=== PATIENT | female | born 1930 | race Asian ===

== ENCOUNTER 2017-04-02 22:13 | Inpatient (IN) | payer MEDICARE, OTHER ==
[~2017-04-02] VITALS: Ht 162.6 cm; Wt 55.3 kg
[~2017-04-02 22:13] MED LIST: ACETAMINOPHEN-1 EAC1 ORAL; ASPIR 8181 MG ORAL; CORLANOR5 MG PO; FERROUS SULFAT325 MG ORAL; GABAPENTIN300 MG ORAL; LIPITOR80 MG ORAL; METOPROLOL TART50 MG ORAL; MIRTAZAPINE15 M3 ORAL; SPIRONOLACTONE25 MG ORAL; SULFAMETHOXAZO1 EAC2 ORAL; TRADJENTA5 MG PO; ZESTRIL2.5 MG ORAL
--- NOTE | 2017-04-02 22:15 | Emergency Room Report ---
History of Present Illness General Chief Complaint: Fever Source: Family Member, EMS Present Illness HPI Patient is a 87-year-old female brought in by EMS after increased fever. Patient gradual onset of symptoms. The patient was noted to have 102 temperature at home. She had prior history of urostomy as well as colostomy. She had prior history of mild dementia. The patient brought in by EMS.Has had prior history of AR Allergies: Coded Allergies: No Known Allergies (Unverified , 01/03/16) Patient History Last Menstrual Period: ukn Now: No Reviewed Nursing Documentation: PMH: Agreed, PSxH: Agreed Nursing Documentation-PMH Past Medical History: No History, Except For Review of Systems All Other Systems: limited - by mental status Physical Exam Vital Signs Date Time Temp Pulse Resp B/P Pulse Ox O2 Delivery O2 Flow Rate FiO2 04/02/17 22:05 99.5 75 16 123/69 99 Room Air General Appearance: alert, mild distress Eyes: bilateral eye PERRL Neck: limited range of motion Respiratory: lungs clear Cardiovascular #1: no edema, diastolic murmur Gastrointestinal: normal bowel sounds, non tender, other - colostomy, urostomy Genitourinary: no CVA tenderness, adnexa normal Neurologic: alert, motor weakness - bilateral lower extremity Skin: no rash, other - slight discoloration to right foot Medical Decision Making Diagnostic Impression: Primary Impression: Sepsis Additional Impression: UTI (urinary tract infection) ER Course Patient presented for fever. Differential diagnosis included wasn't limited to pneumonia, urinary tract infection, drug fever, allergic reaction, sepsis, cholecystitis, among others. Labs Test 04/02/17 22:30 04/02/17 22:36 White Blood Count 11.7 K/UL (4.8-10.8) Red Blood Count 3.18 M/UL (4.20-5.40) Hemoglobin 10.2 G/DL (12.0-16.0) Hematocrit 29.9 % (37.0-47.0) Mean Corpuscular Volume 94 FL (80-99) Mean Corpuscular Hemoglobin 32.0 PG (27.0-31.0) Mean Corpuscular Hemoglobin Concent 34.0 G/DL (32.0-36.0) Red Cell Distribution Width 14.5 % (11.6-14.8) Platelet Count 179 K/UL (150-450) Mean Platelet Volume 6.4 FL (6.5-10.1) Neutrophils (%) (Auto) 82.1 % (45.0-75.0) Lymphocytes (%) (Auto) 11.2 % (20.0-45.0) Monocytes (%) (Auto) 6.4 % (1.0-10.0) Eosinophils (%) (Auto) 0.2 % (0.0-3.0) Basophils (%) (Auto) 0.2 % (0.0-2.0) Sodium Level 138 mEQ/L (135-145) Potassium Level 4.4 mEQ/L (3.4-4.9) Chloride Level 103 mEQ/L (98-107) Carbon Dioxide Level 26 mEQ/L (20-30) Anion Gap 9 (5-15) Blood Urea Nitrogen 15 mg/dL (7-23) Creatinine 0.7 mg/dL (0.5-0.9) Estimat Glomerular Filtration Rate mL/min (>60) Glucose Level 120 mg/dL (74-106) Lactic Acid Level 1.20 mmol/L (0.66-2.22) Calcium Level 8.3 mg/dL (8.6-10.2) Total Bilirubin 0.6 mg/dL (0.0-1.2) Aspartate Amino Transf (AST/SGOT) 14 U/L (5-40) Alanine Aminotransferase (ALT/SGPT) 8 U/L (3-33) Alkaline Phosphatase 81 U/L (35-104) Total Creatine Kinase 19 U/L (26-140) Creatine Kinase MB < 1.5 ng/mL (< 3.8) Creatine Kinase MB Relative Index 7.8 Troponin I < 0.30 ng/mL (<=0.30) Pro-B-Type Natriuretic Peptide 2533 pg/mL (0-450) Total Protein 6.2 g/dL (6.6-8.7) Albumin 2.9 g/dL (3.5-5.2) Globulin 3.3 g/dL Albumin/Globulin Ratio 0.8 (1.0-2.7) Urine Color Pale yellow Urine Appearance Turbid Urine pH 6.5 (4.5-8.0) Urine Specific [place] 1.015 (1.005-1.035) Urine Protein 3+ (NEGATIVE) Urine Glucose (UA) Negative (NEGATIVE) Urine Ketones Negative (NEGATIVE) Urine Occult Blood 5+ (NEGATIVE) Urine Nitrite Positive (NEGATIVE) Urine Bilirubin Negative (NEGATIVE) Urine Urobilinogen Normal MG/DL (0.0-1.0) Urine Leukocyte Esterase 3+ (NEGATIVE) Urine RBC 2-4 /HPF (0 - 2) Urine WBC Tntc /HPF (0 - 2) Urine Squamous Epithelial Cells None /LPF (NONE/OCC) Urine Bacteria Many /HPF (NONE) EKG Diagnostic Results Rate: normal Rhythm: NSR ST Segments: no acute changes Chest X-Ray Diagnostic Results Chest X-Ray Diagnostic Results : Chest X-Ray Ordered: Yes # of Views/Limited/Complete: 1 View Indication: Shortness of Breath EP Interpretation: Yes Interpretation: no consolidation, no pneumothorax, other - left effusion Interpreting ER Provider: Electronically signed by Dr. Merrick Gray M.D. Last Vital Signs Date Time Temp Pulse Resp B/P Pulse Ox O2 Delivery O2 Flow Rate FiO2 04/02/17 22:05 99.5 75 16 123/69 99 Room Air Status: unchanged Disposition: ADMITTED INPATIENT Condition: Serious Merrick Gray Apr 02, 2017 22:15
[2017-04-02 22:36] LABS: BASOPHILS % (AUTO) 0.2 % (0.0-2.0); EOSINOPHILS % (AUTO) 0.2 % (0.0-3.0); LYMPHOCYTES % (AUTO) 11.2 % (20.0-45.0); MEAN CORPUSCULAR VOLUME 94 FL (80-99); MEAN PLATELET VOLUME 6.4 FL (6.5-10.1); MONOCYTES % (AUTO) 6.4 % (1.0-10.0); NEUTROPHILS % (AUTO) 82.1 % (45.0-75.0); PLATELET COUNT 179 K/UL (150-450); RED BLOOD COUNT 3.18 M/UL (4.20-5.40); RED CELL DISTRIBUTION WIDTH 14.5 % (11.6-14.8); WHITE BLOOD COUNT 11.7 K/UL (4.8-10.8)
[2017-04-02 22:44] LABS: APPEARANCE,URINE TURBID; KETONES,URINE NEGATIVE (NEGATIVE); LEUKOCYTE ESTERASE ,URINE 3+ (NEGATIVE); NITRITE,URINE POSITIVE (NEGATIVE); PH,URINE 6.5 (4.5-8.0); PROTEIN,URINE 3+ (NEGATIVE); UROBILINOGEN,URINE NORMAL MG/DL (0.0-1.0)
[2017-04-02 22:49] LABS: TROPONIN I < 0.30 ng/mL (<=0.30)
[2017-04-02 22:50] LABS: ALANINE AMINOTRANSFERASE 8 U/L (3-33); ALBUMIN/GLOBULIN RATIO 0.8 (1.0-2.7); ANION GAP 9 (5-15); ASPARTATE AMINO TRANSFERASE 14 U/L (5-40); CALCIUM 8.3 mg/dL (8.6-10.2); CARBON DIOXIDE 26 mEQ/L (20-30); CHLORIDE 103 mEQ/L (98-107); CREATININE 0.7 mg/dL (0.5-0.9); HEMOLYSIS 20; POTASSIUM 4.4 mEQ/L (3.4-4.9); SODIUM 138 mEQ/L (135-145); TOTAL PROTEIN 6.2 g/dL (6.6-8.7)
[2017-04-02] MEDS ORDERED: Ampicillin/Sulbactam Sod 3 GM in NS 110 ML IVPB ONE (23:00)
[2017-04-02 23:01] LABS: CKMB < 1.5 ng/mL (< 3.8)
[2017-04-02] MEDS ORDERED: Unasyn 3gm Inj ONE (23:05)
[2017-04-02 23:17] LABS: BACTERIA,URINE MANY /HPF; WBC,URINE TNTC /HPF (0 - 2)
[2017-04-02] MEDS ORDERED: ASPIRIN EC81 MG ORAL (23:26)
[2017-04-02] MEDS ORDERED: AMLODIPINE BESYL5 MG ORAL (23:26)
[2017-04-02] MEDS ORDERED: DOCUSATE SODIU100 MG ORAL (23:26)
[2017-04-02] MEDS ORDERED: CEPHALEXIN500 M1 ORAL (23:26)
[2017-04-02 23:29] VITALS: BP 121/56
[2017-04-03] VITALS (7 sets, daily range): BP systolic 114–150; BP diastolic 44–81
[2017-04-03] MEDS ORDERED: LISINOPRIL5 MG ORAL (02:37)
[2017-04-03] MEDS ORDERED: DOCUSATE SODIU100 MG ORAL (02:37)
[2017-04-03] MEDS ORDERED: Morphine Sulfate 2mg/ml Inj IVP PRN (07:30)
[2017-04-03] MEDS ORDERED: DuoNeb 0.5-3(2.5)mg/3ml neb HHN PRN (07:30)
[2017-04-03] MEDS ORDERED: Miralax 17gm pkt ORAL PRN (07:30)
[2017-04-03] MEDS ORDERED: Nitroglycerin Subl 0.4mg tab (Bottle Of 25) SL PRN (07:30)
--- NOTE | 2017-04-03 08:25 | Diagnostic Imaging Report ---
Indication: Abdominal pain Technique: Continuous helical scanning was performed without any contrast material from the diaphragms through the pelvis per specific request of the ordering physician. Axial, sagittal, and coronal images were generated. Dose: Total Dose Length Product - DLP [address] Dose Index - CTDIvol(s) 16.3 mGy. Comparison: 05/05/2016 Findings: Calcification is noted in the aorta. There is calcification of the mitral valve. Pleural effusion is present, larger than on the previous study. There is a tiny right pleural effusion. Some atelectasis is noted in both lung bases. Liver is unremarkable. The gallbladder is normal. The spleen is normal. Ostomies are present on both sides of the abdomen. The ostomy on the right is new since previous study appears to represent a urinary diversion. The pancreas is not enlarged and is otherwise unremarkable. Some nodularity is noted in the adrenal glands but this is unchanged. There is a lateral hydronephrosis which is new since previous study. The retroperitoneum is free of adenopathy. There is an inferior vena caval filter. There is no evidence of bowel dilatation. The bladder is incompletely filled. The bladder wall is slightly thickened. Severe degenerative changes noted in the left hip. There is a right hip screw and jossie. The bones are osteopenic. Degenerative changes are noted in the spine. A compression fracture of L1. 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 There is now bilateral hydronephrosis. Thickened bladder wall. IVC filter. Atherosclerotic change. Degenerative change of the spine. Compression fracture of L1, old. Left pleural effusion, increased from previous study. There are small right pleural effusion. Calcified mitral bowel. Appendix not visualized. There are degenerative change of the spine. Hardware the right hip. Degenerative change of the left hip. The above report is concordant with preliminary reading by [facility] . The CT scanner at [facility] is accredited by the [employer] and the scans are performed using protocols designed to limit radiation exposure to as low as reasonably achievable to attain images of sufficient resolution adequate for diagnostic evaluation.
[2017-04-03] MEDS: Atorvastatin 80mg tab ORAL SCH (09:00)
[2017-04-03] MEDS: Heparin 5000 units/ml inj SUBQ SCH ×2 (09:00→20:43)
[2017-04-03] MEDS: Aspirin EC 81mg tab ORAL SCH (09:00)
[2017-04-03] MEDS ORDERED: Cefepime HCl 2 GM in D5W 110 ML IV ONE (10:00)
[2017-04-03 10:55] LABS: TROPONIN I < 0.30 ng/mL (<=0.30)
[2017-04-03] MEDS: Vancomycin 1 GM in D5W 275 ML IVPB SCH (11:00)
--- NOTE | 2017-04-03 12:00 | History and Physical Report ---
DATE OF ADMISSION: 04/02/2017 TIME: 9 a.m. CONSULTANTS: 1. 2. Fartun Hawthorne M.D. 3. George Alvarado M.D. 4. Richard De La Fuente M.D. 5. Sarthak Johnson M.D. CHIEF COMPLAINT: Fever, weakness, and confusion. BRIEF HISTORY: The patient is an 86-year-old female from home, presents to [facility] last night with increased fever and weakness, slightly confused. The patient was diagnosed with UTI and sepsis and admitted to telemetry for further care. Slightly anxious, resting in bed, and slightly confused. No complaints otherwise. PAST MEDICAL HISTORY: Hypertension, CHF, and confusion. PAST SURGICAL HISTORY: Appendectomy. MEDICATIONS: Cefepime, vancomycin, Remeron, amlodipine, Ecotrin, Lipitor, Neurontin, , DuoNeb, Tylenol, morphine, MiraLax, Zofran, Restoril, and nitroglycerin. ALLERGIES: Denies. SOCIAL HISTORY: No smoke. No alcohol. No intravenous drug abuse. FAMILY HISTORY: Noncontributory. REVIEW OF SYSTEMS: No chest pain or shortness of breath. No nausea, vomiting, or diarrhea. PHYSICAL EXAMINATION: GENERAL: Slightly anxious, in bed, oriented x2, in no acute distress. VITAL SIGNS: Temperature is 98 degrees, pulse 69, respirations 20, and blood pressure 150/67. CARDIOVASCULAR: No murmurs. LUNGS: Distant and clear. ABDOMEN: Positive bowel sounds. Soft, nontender, and nondistended. EXTREMITIES: No cyanosis, clubbing, or edema. NEUROLOGIC: Cranial nerves II through XII are grossly intact. Deep tendon reflexes are 2+. Strength is 4/5. LABORATORY AND DIAGNOSTIC DATA: White count is 11.7, hemoglobin and hematocrit 10.2 and 29, and platelets 179,000. BMP shows glucose 120. Troponin less than 0.03. BNP is 2533. Albumin is 2.9. Urinalysis, 3+ leukocyte esterase. ASSESSMENT: 1. Fever. 2. Urinary tract infection. 3. Sepsis. 4. Confusion. 5. Congestive heart failure. 6. Hypertension. 7. Anemia. 8. History of ventricular tachycardia. PLAN: 1. Continue premedications. 2. Antibiotics per Infectious Disease. 3. OT, PT, and dietary evaluation. 4. CBC and BMP in the morning. 5. Resume home medications. 6. Dr. Au, Dr. Hawthorne, Dr. Alvarado, Dr. De La Fuente, to consult. 7. We will continue to follow this patient. Delfino Ponce D.O. DR: DEB JOB#: [id number] CC:
[2017-04-03 13:11] LABS: APPEARANCE,URINE CLOUDY; KETONES,URINE NEGATIVE (NEGATIVE); LEUKOCYTE ESTERASE ,URINE 3+ (NEGATIVE); NITRITE,URINE POSITIVE (NEGATIVE); PH,URINE 6 (4.5-8.0); PROTEIN,URINE 3+ (NEGATIVE); UROBILINOGEN,URINE NORMAL MG/DL (0.0-1.0)
[2017-04-03 13:12] LABS: BACTERIA,URINE MANY /HPF; SQUAMOUS EPITHELIAL CELL,UR MODERATE /LPF (NONE/OCC); WBC,URINE TNTC /HPF (0 - 2)
--- NOTE | 2017-04-03 13:20 | Consultation ---
History of Present Illness General Date patient seen: Apr 03, 2017 Chief Complaint: Fever Referring physician: Dr. Gregory Reason for Consultation: inpatient management Present Illness Allergies: Coded Allergies: No Known Allergies (Unverified , 01/03/16) Medication History Scheduled Amlodipine Besylate* (Amlodipine Besylate*), 5 MG ORAL DAILY, (Reported) Aspirin Ec* (Aspirin Ec*), 81 MG ORAL DAILY, (Reported) Atorvastatin (Lipitor), 80 MG ORAL DAILY, (Reported) Cephalexin* (Cephalexin*), 500 MG ORAL THREE TIMES A DAY, (Reported) Gabapentin* (Gabapentin*), 300 MG ORAL THREE TIMES A DAY, (Reported) Lisinopril (Lisinopril*), 5 MG ORAL DAILY, (Reported) Mirtazapine* (Mirtazapine*), 15 MG ORAL DAILY, (Reported) Scheduled PRN Docusate Sodium* (Docusate Sodium*), 100 MG ORAL TWICE A DAY PRN for Constipation, (Reported) Discontinued Medications Docusate Sodium* (Docusate Sodium*), 100 MG ORAL TWICE A DAY, (Reported) Discontinued Reason: Medication dose changed Ferrous Sulfate* (Ferrous Sulfate*), 325 MG ORAL DAILY, (Reported) Discontinued Reason: Pt stopped taking med Ivabradine HCl (Corlanor), 5 MG PO TWICE A DAY, (Reported) Discontinued Reason: Pt stopped taking med Ivabradine HCl (Corlanor), 5 MG PO BID, (Reported) Discontinued Reason: Pt stopped taking med Linagliptin (Tradjenta), 5 MG PO DAILY, (Reported) Discontinued Reason: Pt stopped taking med Lisinopril* (Zestril*), 2.5 MG ORAL DAILY, (Reported) Discontinued Reason: Medication dose changed Metoprolol Tartrate* (Metoprolol Tartrate*), 50 MG ORAL BID, (Reported) Discontinued Reason: Pt stopped taking med Spironolactone* (Aldactone*), 25 MG ORAL DAILY, (Reported) Discontinued Reason: Pt stopped taking med Sulfamethoxazole/Trimethoprim Ds Tablet* (Sulfamethoxazole-Tmp Ds Tablet*), 1 TAB ORAL DAILY, (Reported) Discontinued Reason: Pt stopped taking med Patient History Healthcare decision maker Resuscitation status Full Code Advanced Directive on File Past Medical/Surgical History Past Medical/Surgical History: (1) SBO/ileus (2) Colostomy care (3) Recto-vesical fistula Review of Systems All Other Systems: negative except mentioned in HPI Physical Exam General Appearance: cachetic Lines, tubes and drains: peripheral, central line HEENT: normocephalic, atraumatic Neck: non-tender, normal alignment Respiratory/Chest: chest wall non-tender, lungs clear Breasts: no masses Cardiovascular/Chest: normal peripheral pulses Abdomen: normal bowel sounds, non tender Genitourinary/Rectal: normal genital exam, normal rectal exam Extremities: normal range of motion, non-tender Skin Exam: normal pigmentation Last 24 Hour Vital Signs Date Time Temp Pulse Resp B/P Pulse Ox O2 Delivery O2 Flow Rate FiO2 04/03/17 11:29 98.3 72 19 148/71 94 Room Air 04/03/17 09:00 95 142/72 04/03/17 08:49 98.1 69 20 150/67 95 Room Air 04/03/17 04:00 60 04/03/17 04:00 98.1 62 18 120/60 97 Room Air 04/03/17 01:36 98.1 68 18 127/57 97 Room Air 04/03/17 01:18 68 20 113/48 96 Room Air 04/03/17 00:34 19 114/44 97 Room Air 04/02/17 23:29 98.3 70 25 121/56 96 Room Air 04/02/17 22:05 99.5 75 16 123/69 99 Room Air Intake and Output 04/02/17 04/03/17 19:00 07:00 Intake Total 110 ml Output Total 400 ml Balance -290 ml Intake Oral 0 ml IV Total 110 ml Output Urine Total 200 ml Stool Total 200 ml # Bowel Movements 2 Laboratory Tests Test 04/02/17 22:30 04/02/17 22:36 04/03/17 09:40 04/03/17 12:05 White Blood Count 11.7 K/UL (4.8-10.8) H Red Blood Count 3.18 M/UL (4.20-5.40) L Hemoglobin 10.2 G/DL (12.0-16.0) L Hematocrit 29.9 % (37.0-47.0) L Mean Corpuscular Volume 94 FL (80-99) Mean Corpuscular Hemoglobin 32.0 PG (27.0-31.0) H Mean Corpuscular Hemoglobin Concent 34.0 G/DL (32.0-36.0) Red Cell Distribution Width 14.5 % (11.6-14.8) Platelet Count 179 K/UL (150-450) Mean Platelet Volume 6.4 FL (6.5-10.1) L Neutrophils (%) (Auto) 82.1 % (45.0-75.0) H Lymphocytes (%) (Auto) 11.2 % (20.0-45.0) L Monocytes (%) (Auto) 6.4 % (1.0-10.0) Eosinophils (%) (Auto) 0.2 % (0.0-3.0) Basophils (%) (Auto) 0.2 % (0.0-2.0) Sodium Level 138 mEQ/L (135-145) Potassium Level 4.4 mEQ/L (3.4-4.9) Chloride Level 103 mEQ/L (98-107) Carbon Dioxide Level 26 mEQ/L (20-30) Anion Gap 9 (5-15) Blood Urea Nitrogen 15 mg/dL (7-23) Creatinine 0.7 mg/dL (0.5-0.9) Estimat Glomerular Filtration Rate mL/min (>60) Glucose Level 120 mg/dL (74-106) H Lactic Acid Level 1.20 mmol/L (0.66-2.22) Calcium Level 8.3 mg/dL (8.6-10.2) L Total Bilirubin 0.6 mg/dL (0.0-1.2) Aspartate Amino Transf (AST/SGOT) 14 U/L (5-40) Alanine Aminotransferase (ALT/SGPT) 8 U/L (3-33) Alkaline Phosphatase 81 U/L (35-104) Total Creatine Kinase 19 U/L (26-140) L Creatine Kinase MB < 1.5 ng/mL (< 3.8) Creatine Kinase MB Relative Index 7.8 Troponin I < 0.30 ng/mL (<=0.30) < 0.30 ng/mL (<=0.30) Pro-B-Type Natriuretic Peptide 2533 pg/mL (0-450) H Total Protein 6.2 g/dL (6.6-8.7) L Albumin 2.9 g/dL (3.5-5.2) L Globulin 3.3 g/dL Albumin/Globulin Ratio 0.8 (1.0-2.7) L Urine Color Pale yellow Pale yellow Urine Appearance Turbid Cloudy Urine pH 6.5 (4.5-8.0) 6 (4.5-8.0) Urine Specific [place] 1.015 (1.005-1.035) 1.010 (1.005-1.035) Urine Protein 3+ (NEGATIVE) H 3+ (NEGATIVE) H Urine Glucose (UA) Negative (NEGATIVE) Negative (NEGATIVE) Urine Ketones Negative (NEGATIVE) Negative (NEGATIVE) Urine Occult Blood 5+ (NEGATIVE) H 4+ (NEGATIVE) H Urine Nitrite Positive (NEGATIVE) H Positive (NEGATIVE) H Urine Bilirubin Negative (NEGATIVE) Negative (NEGATIVE) Urine Urobilinogen Normal MG/DL (0.0-1.0) Normal MG/DL (0.0-1.0) Urine Leukocyte Esterase 3+ (NEGATIVE) H 3+ (NEGATIVE) H Urine RBC 2-4 /HPF (0 - 2) H 10-15 /HPF (0 - 2) H Urine WBC Tntc /HPF (0 - 2) H Tntc /HPF (0 - 2) H Urine Squamous Epithelial Cells None /LPF (NONE/OCC) Moderate /LPF (NONE/OCC) H Urine Bacteria Many /HPF (NONE) H Many /HPF (NONE) H Microbiology Date/Time Source Procedure Growth Status 04/02/17 22:36 Urine,Clean Catch Urine Culture - Preliminary Gram Negative Mauricio Resulted Height (Feet): 5 Height (Inches): 4.00 Weight (Pounds): 122 Medications Current Medications Medications (Trade) Dose Ordered Sig/Turner Route PRN Reason Start Time Stop Time Status Last Admin Dose Admin Acetaminophen (Tylenol) 650 mg Q4H PRN ORAL fever 04/03/17 07:30 05/03/17 07:29 Acetaminophen (Tylenol) 650 mg Q6H PRN ORAL Mild Pain/Temp > 100.5 04/03/17 02:15 05/03/17 02:14 Albuterol/ Ipratropium 3 ml 3 ml EVERY 4 HOURS PRN HHN Shortness of Breath 04/03/17 07:30 04/08/17 07:29 Amlodipine Besylate (Norvasc) 5 mg DAILY ORAL 04/03/17 09:00 05/03/17 08:59 04/03/17 09:00 Aspirin (Ecotrin) 81 mg DAILY ORAL 04/03/17 09:00 05/03/17 08:59 04/03/17 09:00 Atorvastatin Calcium (Lipitor) 80 mg DAILY ORAL 04/03/17 09:00 05/03/17 08:59 04/03/17 09:00 Cefepime HCl/ Dextrose (Maxipime/D5W) 55 ml @ 110 mls/hr Q24H IVPB 04/04/17 10:00 04/11/17 09:59 Gabapentin (Neurontin) 300 mg THREE TIMES A DAY ORAL 04/03/17 09:00 05/03/17 08:59 04/03/17 09:00 Heparin Sodium (Porcine) (Heparin 5000 units/ml) 5,000 units EVERY 12 HOURS SUBQ 04/03/17 09:00 05/03/17 08:59 04/03/17 09:00 Mirtazapine (Remeron) 15 mg QHS ORAL 04/03/17 21:00 05/03/17 20:59 Morphine Sulfate (Morphine Sulfate) 2 mg EVERY 4 HOURS PRN IVP Moderate Pain (Pain Scale 4-6) 04/03/17 07:30 04/10/17 07:29 Nitroglycerin 0.4 mg 0.4 mg Q5M PRN SL Prn Chest Pain 04/03/17 07:30 05/03/17 07:29 Ondansetron HCl (Zofran) 4 mg Q6H PRN IVP Nausea & Vomiting 04/03/17 07:30 05/03/17 07:29 Polyethylene Glycol (Miralax) 17 gm DAILYPRN PRN ORAL Constipation 04/03/17 07:30 05/03/17 07:29 Temazepam (Restoril) 15 mg HSPRN PRN ORAL Insomnia 04/03/17 07:30 04/10/17 07:29 Vancomycin HCl (Vanco rx to dose) 1 ea DAILY PRN MISC . 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
--- NOTE | 2017-04-03 14:09 | Infectious Diseases Prog Note ---
Assessment/Plan Problems: (1) Surgical wound, non healing Assessment & Plan: with drainage, suspect infection, continue vancomycin and cefepime empirically, send wound culture (2) UTI (urinary tract infection) Assessment & Plan: on cefepime, await culture (3) Sepsis Assessment & Plan: due to the above, on vancomycin and cefepime, await blood culture (4) Recto-vesical fistula Assessment & Plan: S/P right urostomy at [facility], CT showed stable anatomy Subjective Allergies: Coded Allergies: No Known Allergies (Unverified , 01/03/16) Objective Vital Signs Last 24 Hour Vital Signs Date Time Temp Pulse Resp B/P Pulse Ox O2 Delivery O2 Flow Rate FiO2 04/03/17 12:00 68 04/03/17 11:29 98.3 72 19 148/71 94 Room Air 04/03/17 09:00 95 142/72 04/03/17 08:49 98.1 69 20 150/67 95 Room Air 04/03/17 08:00 93 04/03/17 04:00 60 04/03/17 04:00 98.1 62 18 120/60 97 Room Air 04/03/17 01:36 98.1 68 18 127/57 97 Room Air 04/03/17 01:18 68 20 113/48 96 Room Air 04/03/17 00:34 19 114/44 97 Room Air 04/02/17 23:29 98.3 70 25 121/56 96 Room Air 04/02/17 22:05 99.5 75 16 123/69 99 Room Air Height (Feet): 5 Height (Inches): 4.00 Weight (Pounds): 122 Microbiology Date/Time Source Procedure Growth Status 04/02/17 22:36 Urine,Clean Catch Urine Culture - Preliminary Gram Negative Mauricio Resulted Laboratory Tests Test 04/02/17 22:30 04/02/17 22:36 04/03/17 09:40 04/03/17 12:05 White Blood Count 11.7 K/UL (4.8-10.8) H Red Blood Count 3.18 M/UL (4.20-5.40) L Hemoglobin 10.2 G/DL (12.0-16.0) L Hematocrit 29.9 % (37.0-47.0) L Mean Corpuscular Volume 94 FL (80-99) Mean Corpuscular Hemoglobin 32.0 PG (27.0-31.0) H Mean Corpuscular Hemoglobin Concent 34.0 G/DL (32.0-36.0) Red Cell Distribution Width 14.5 % (11.6-14.8) Platelet Count 179 K/UL (150-450) Mean Platelet Volume 6.4 FL (6.5-10.1) L Neutrophils (%) (Auto) 82.1 % (45.0-75.0) H Lymphocytes (%) (Auto) 11.2 % (20.0-45.0) L Monocytes (%) (Auto) 6.4 % (1.0-10.0) Eosinophils (%) (Auto) 0.2 % (0.0-3.0) Basophils (%) (Auto) 0.2 % (0.0-2.0) Sodium Level 138 mEQ/L (135-145) Potassium Level 4.4 mEQ/L (3.4-4.9) Chloride Level 103 mEQ/L (98-107) Carbon Dioxide Level 26 mEQ/L (20-30) Anion Gap 9 (5-15) Blood Urea Nitrogen 15 mg/dL (7-23) Creatinine 0.7 mg/dL (0.5-0.9) Estimat Glomerular Filtration Rate mL/min (>60) Glucose Level 120 mg/dL (74-106) H Lactic Acid Level 1.20 mmol/L (0.66-2.22) Calcium Level 8.3 mg/dL (8.6-10.2) L Total Bilirubin 0.6 mg/dL (0.0-1.2) Aspartate Amino Transf (AST/SGOT) 14 U/L (5-40) Alanine Aminotransferase (ALT/SGPT) 8 U/L (3-33) Alkaline Phosphatase 81 U/L (35-104) Total Creatine Kinase 19 U/L (26-140) L Creatine Kinase MB < 1.5 ng/mL (< 3.8) Creatine Kinase MB Relative Index 7.8 Troponin I < 0.30 ng/mL (<=0.30) < 0.30 ng/mL (<=0.30) Pro-B-Type Natriuretic Peptide 2533 pg/mL (0-450) H Total Protein 6.2 g/dL (6.6-8.7) L Albumin 2.9 g/dL (3.5-5.2) L Globulin 3.3 g/dL Albumin/Globulin Ratio 0.8 (1.0-2.7) L Urine Color Pale yellow Pale yellow Urine Appearance Turbid Cloudy Urine pH 6.5 (4.5-8.0) 6 (4.5-8.0) Urine Specific [place] 1.015 (1.005-1.035) 1.010 (1.005-1.035) Urine Protein 3+ (NEGATIVE) H 3+ (NEGATIVE) H Urine Glucose (UA) Negative (NEGATIVE) Negative (NEGATIVE) Urine Ketones Negative (NEGATIVE) Negative (NEGATIVE) Urine Occult Blood 5+ (NEGATIVE) H 4+ (NEGATIVE) H Urine Nitrite Positive (NEGATIVE) H Positive (NEGATIVE) H Urine Bilirubin Negative (NEGATIVE) Negative (NEGATIVE) Urine Urobilinogen Normal MG/DL (0.0-1.0) Normal MG/DL (0.0-1.0) Urine Leukocyte Esterase 3+ (NEGATIVE) H 3+ (NEGATIVE) H Urine RBC 2-4 /HPF (0 - 2) H 10-15 /HPF (0 - 2) H Urine WBC Tntc /HPF (0 - 2) H Tntc /HPF (0 - 2) H Urine Squamous Epithelial Cells None /LPF (NONE/OCC) Moderate /LPF (NONE/OCC) H Urine Bacteria Many /HPF (NONE) H Many /HPF (NONE) H Current Medications Medications (Trade) Dose Ordered Sig/Turner Route PRN Reason Start Time Stop Time Status Last Admin Dose Admin Acetaminophen (Tylenol) 650 mg Q4H PRN ORAL fever 04/03/17 07:30 05/03/17 07:29 Acetaminophen (Tylenol) 650 mg Q6H PRN ORAL Mild Pain/Temp > 100.5 04/03/17 02:15 05/03/17 02:14 Albuterol/ Ipratropium 3 ml 3 ml EVERY 4 HOURS PRN HHN Shortness of Breath 04/03/17 07:30 04/08/17 07:29 Amlodipine Besylate (Norvasc) 5 mg DAILY ORAL 04/03/17 09:00 05/03/17 08:59 04/03/17 09:00 Aspirin (Ecotrin) 81 mg DAILY ORAL 04/03/17 09:00 05/03/17 08:59 04/03/17 09:00 Atorvastatin Calcium (Lipitor) 80 mg DAILY ORAL 04/03/17 09:00 05/03/17 08:59 04/03/17 09:00 Cefepime HCl/ Dextrose (Maxipime/D5W) 55 ml @ 110 mls/hr Q24H IVPB 04/04/17 10:00 04/11/17 09:59 Gabapentin (Neurontin) 300 mg THREE TIMES A DAY ORAL 04/03/17 09:00 05/03/17 08:59 04/03/17 13:25 Heparin Sodium (Porcine) (Heparin 5000 units/ml) 5,000 units EVERY 12 HOURS SUBQ 04/03/17 09:00 05/03/17 08:59 04/03/17 09:00 Mirtazapine (Remeron) 15 mg QHS ORAL 04/03/17 21:00 05/03/17 20:59 Morphine Sulfate (Morphine Sulfate) 2 mg EVERY 4 HOURS PRN IVP Moderate Pain (Pain Scale 4-6) 04/03/17 07:30 04/10/17 07:29 Nitroglycerin 0.4 mg 0.4 mg Q5M PRN SL Prn Chest Pain 04/03/17 07:30 05/03/17 07:29 Ondansetron HCl (Zofran) 4 mg Q6H PRN IVP Nausea & Vomiting 04/03/17 07:30 05/03/17 07:29 Polyethylene Glycol (Miralax) 17 gm DAILYPRN PRN ORAL Constipation 04/03/17 07:30 05/03/17 07:29 Temazepam (Restoril) 15 mg HSPRN PRN ORAL Insomnia 04/03/17 07:30 04/10/17 07:29 Vancomycin HCl (Vanco rx to dose) 1 ea DAILY PRN MISC . 04/03/17 09:30 05/03/17 09:29 Vancomycin HCl/ Dextrose (Vancomycin/D5W) 275 ml @ 183.3 mls/ hr Q24H IVPB 04/03/17 11:00 04/08/17 10:59 04/03/17 11:00 Tammie James M.D. Apr 03, 2017 14:09
--- NOTE | 2017-04-03 18:15 | Consultation ---
DATE OF CONSULTATION: 04/03/2017 INFECTIOUS DISEASE CONSULTATION REQUESTING PHYSICIAN: Delfino Ponce D.O. REASON FOR CONSULTATION: Urinary tract infection, sepsis with fever and possible surgical wound infection, recommendation for antibiotics treatment. HISTORY OF PRESENT ILLNESS: The patient is an 86-year-old female, who had the recent surgical urostomy done at [facility] a month ago, who was sent to [facility] emergency room for increased fever up to 102 at home. 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 Finally, she had diverting urostomy in [facility] a month ago. After her surgery, her wound was open and draining some yellowish material, so she went there to the hospital to follow up with the surgeon who did her surgery and she was given oral antibiotics. The patient did okay until yesterday when she spiked temperature of 102 and she was brought in by her daughter to the emergency room for evaluation. The patient had a CT scan of the abdomen and pelvis, which showed good anatomy for the urostomy and no evidence of abscess or intra-abdominal pathology. Her urinalysis showed evidence of infection, so I was consulted by the primary provider for antibiotics treatment since the patient had history of vancomycin resistant enterococcus urine infection, which was treated at [facility] last month when she was hospitalized. As of note, the patient is a poor historian, cannot provide good history. History was mainly obtained from the medical records and the daughter at the bedside due to dementia. REVIEW OF SYSTEMS: Unable to obtain at this point. PAST MEDICAL HISTORY: 1. 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 2. 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 3. Dementia. 4. Urine retention, status post suprapubic catheter in the past. PAST SURGICAL HISTORY: She had right urostomy a month ago. She had colostomy done last year due to bowel ischemia. She had history of suprapubic catheter placement and removal last year. MEDICATIONS: The patient is on cefepime and vancomycin by the admitting physician. For the rest of her medication list, please refer to MAR. ALLERGIES: She has no known drug allergy. FAMILY HISTORY: Noncontributory. SOCIAL HISTORY: She lives at home with daughter. No recent drugs, tobacco, or alcohol. LABORATORY DATA: Labs showed white count of 11.7, hemoglobin of 10.2, and platelet count of 179,000. BUN of 15 and creatinine of 0.7. AST of 14 and ALT of 8. Urinalysis showed +3 leukocyte esterase, WBC too numerous to count, and many urine bacteria. MICROBIOLOGY: Urine culture is growing gram-negative rods. IMAGING: Abdominal and pelvis CT scan without contrast showed intervening urinary diversion with ostomy in the right side of the abdomen. There is now bilateral hydronephrosis, thickened bladder wall, IVC filter, atherosclerotic change, degenerative change of the spine, compression fracture of L1, left pleural effusion with small right pleural effusion, calcified mural bowel, appendix not visualized. Degenerative change of the spine, hardware in the right hip. PHYSICAL EXAMINATION: GENERAL: This is an elderly female, demented, pleasant, up in bed, eating her lunch. Awake and alert, not in distress. Daughter at the bedside. VITAL SIGNS: Temperature 98.3 degrees, pulse 72, respirations 19, blood pressure 148/71, and pulse oximetry 94% on room air. HEENT: Normocephalic and atraumatic. Pale sclera. Moist oral mucosa. No exudate or thrush. NECK: Supple. No lymphadenopathy. CARDIOVASCULAR: Regular rate and rhythm. No murmur. LUNGS: She had diminished breathing sounds at the bases. No wheezing or rhonchi. ABDOMEN: Soft, nontender, and nondistended. Midline surgical wound dehisced in 2 points, one of them draining pus like material with mild erythema around it. She had right urostomy bag with whitish mucus at the colostomy site and clear urine. Left side colostomy bag with brownish stool in it. Bowel sounds are heard and active. No local tenderness or rebound. EXTREMITIES: No edema or cyanosis. SKIN: No rash or hives. ASSESSMENT AND RECOMMENDATION: 1. Surgical wound, nonhealing with drainage suspect infection. We will continue vancomycin and cefepime empiric treatment for now and send wound culture. Recommend wound care consultation. 2. Urinary tract infection with gram-negative rods. The patient already on cefepime will continue for now. Pending culture results and sensitivity. 3. Sepsis due to the above, on vancomycin and cefepime. We will send blood culture. 4. Rectovesical fistula, status post right urostomy at [facility], stable on CT scan. Continue urostomy care. Thank you for the consult. Infectious Disease will continue to follow. Tammie James M.D. DR: CHRIS JOB#: [id number] CC: OLE
[2017-04-03] MEDS ORDERED: MILK OF MA400 MG/51 ORAL (22:32)
[2017-04-04] VITALS: BP 122/60
[2017-04-04 04:00] VITALS: BP 123/52
[2017-04-04 05:51] LABS: BASOPHILS % (AUTO) 0.2 % (0.0-2.0); EOSINOPHILS % (AUTO) 0.8 % (0.0-3.0); LYMPHOCYTES % (AUTO) 17.2 % (20.0-45.0); MEAN CORPUSCULAR HEMOGLOBIN 31.3 PG (27.0-31.0); MEAN CORPUSCULAR HGB CONC 33.3 G/DL (32.0-36.0); MEAN CORPUSCULAR VOLUME 94 FL (80-99); MEAN PLATELET VOLUME 6.2 FL (6.5-10.1); NEUTROPHILS % (AUTO) 72.8 % (45.0-75.0); PLATELET COUNT 152 K/UL (150-450); RED BLOOD COUNT 2.88 M/UL (4.20-5.40); RED CELL DISTRIBUTION WIDTH 14.1 % (11.6-14.8); WHITE BLOOD COUNT 5.9 K/UL (4.8-10.8)
[2017-04-04 06:07] LABS: ALANINE AMINOTRANSFERASE 6 U/L (3-33); ALBUMIN/GLOBULIN RATIO 0.6 (1.0-2.7); ANION GAP 9 (5-15); ASPARTATE AMINO TRANSFERASE 13 U/L (5-40); CALCIUM 7.9 mg/dL (8.6-10.2); CARBON DIOXIDE 22 mEQ/L (20-30); CHLORIDE 106 mEQ/L (98-107); CREATININE 0.6 mg/dL (0.5-0.9); HEMOLYSIS 2; POTASSIUM 3.9 mEQ/L (3.4-4.9); SODIUM 137 mEQ/L (135-145); TOTAL PROTEIN 5.7 g/dL (6.6-8.7)
--- NOTE | 2017-04-04 07:51 | General Progress Note ---
Assessment/Plan Problem List: (1) CHF (congestive heart failure) ICD Codes: I50.9 - Heart failure, unspecified SNOMED: 37172842 (2) HTN (hypertension) ICD Codes: I10 - Essential (primary) hypertension SNOMED: 57172334 (3) UTI (urinary tract infection) ICD Codes: N39.0 - Urinary tract infection, site not specified SNOMED: 29611400 (4) Anemia ICD Codes: D64.9 - Anemia, unspecified SNOMED: 086965241 (5) Sepsis ICD Codes: A41.9 - Sepsis, unspecified organism SNOMED: 45628453 Status: stable, progressing, tolerating diet Assessment/Plan ot pt diet abx cbc bmp am Subjective Constitutional: Reports: weakness Allergies: Coded Allergies: No Known Allergies (Unverified , 01/03/16) All Systems: reviewed and negative except above Subjective sleepy in bed calm Objective Last 24 Hour Vital Signs Date Time Temp Pulse Resp B/P Pulse Ox O2 Delivery O2 Flow Rate FiO2 04/04/17 04:00 97.7 60 20 123/52 98 Room Air 04/04/17 04:00 58 04/04/17 00:00 63 04/04/17 00:00 97.7 63 20 122/60 98 Room Air 04/03/17 20:00 98.2 63 20 132/60 98 Room Air 04/03/17 20:00 68 04/03/17 19:42 67 18 Room Air 04/03/17 16:02 98.4 73 20 119/81 98 Room Air 04/03/17 15:25 78 04/03/17 12:00 68 04/03/17 11:29 98.3 72 19 148/71 94 Room Air 04/03/17 09:00 95 142/72 04/03/17 08:49 98.1 69 20 150/67 95 Room Air 04/03/17 08:00 93 Intake and Output 04/03/17 04/04/17 19:00 07:00 Intake Total 980 ml Output Total 790 ml 750 ml Balance 190 ml -750 ml Intake Oral 980 ml Output Urine Total 300 ml Stool Total 200 ml 150 ml Other 290 ml 600 ml # Bowel Movements 1 Laboratory Tests 04/03/17 09:40: Troponin I < 0.30 04/03/17 12:05: Urine Color Pale yellow, Urine Appearance Cloudy, Urine pH 6, Urine Specific [place] 1.010, Urine Protein 3+H, Urine Glucose (UA) Negative, Urine Ketones Negative, Urine Occult Blood 4+H, Urine Nitrite PositiveH, Urine Bilirubin Negative, Urine Urobilinogen Normal, Urine Leukocyte Esterase 3+H, Urine RBC 10- 15H, Urine WBC TntcH, Urine Squamous Epithelial Cells ModerateH, Urine Bacteria ManyH 04/04/17 05:40: White Blood Count 5.9, Red Blood Count 2.88L, Hemoglobin 9.0L, Hematocrit 27.0L , Mean Corpuscular Volume 94, Mean Corpuscular Hemoglobin 31.3H, Mean Corpuscular Hemoglobin Concent 33.3, Red Cell Distribution Width 14.1, Platelet Count 152, Mean Platelet Volume 6.2L, Neutrophils (%) (Auto) 72.8, Lymphocytes ( %) (Auto) 17.2L, Monocytes (%) (Auto) 9.0, Eosinophils (%) (Auto) 0.8, Basophils (%) (Auto) 0.2, Sodium Level 137, Potassium Level 3.9, Chloride Level 106, Carbon Dioxide Level 22, Anion Gap 9, Blood Urea Nitrogen 16, Creatinine 0.6, Estimat Glomerular Filtration Rate , Glucose Level 98, Calcium Level 7.9L, Total Bilirubin 0.5, Aspartate Amino Transf (AST/SGOT) 13, Alanine Aminotransferase (ALT/SGPT) 6, Alkaline Phosphatase 72, Total Protein 5.7L, Albumin 2.3L, Globulin 3.4, Albumin/Globulin Ratio 0.6L Height (Feet): 5 Height (Inches): 4.00 Weight (Pounds): 122 General Appearance: lethargic EENT: normal ENT inspection Neck: normal alignment Cardiovascular: normal peripheral pulses, normal rate, regular rhythm Respiratory/Chest: chest wall non-tender, lungs clear, normal breath sounds Abdomen: normal bowel sounds, non tender, soft Extremities: normal inspection Edema: no edema noted Arm (L), no edema noted Arm (R), no edema noted Leg (L), no edema noted Leg (R), no edema noted Pedal (L), no edema noted Pedal (R), no edema noted Generalized Neurologic: responsive, motor weakness Skin: normal pigmentation, warm/dry MANDI PADILLA Apr 04, 2017 07:51
[2017-04-04 08:00] VITALS: BP 121/58
[2017-04-04] MEDS: Atorvastatin 80mg tab ORAL SCH (08:35)
[2017-04-04] MEDS: Aspirin EC 81mg tab ORAL SCH (08:35)
[2017-04-04] MEDS: Heparin 5000 units/ml inj SUBQ SCH ×2 (08:36→21:08)
[2017-04-04] MEDS ORDERED: Cefepime 1gm/D5W 55ml IVPB SCH ×2 (10:00)
[2017-04-04] MEDS: Vancomycin 1 GM in D5W 275 ML IVPB SCH (11:04)
[2017-04-04] MEDS ORDERED: NS 275ml ONE (11:12)
[2017-04-04 12:00] VITALS: BP 107/50
--- NOTE | 2017-04-04 14:05 | Pulmonology Progress Note ---
Assessment/Plan Problems: (1) Sepsis (2) Pyelonephritis (3) Colostomy care (4) Recto-vesical fistula Assessment/Plan improvnig continue abx check cultures Urology consult pending, Dr Kinney to see symptomatic treatment titrate fio2 dvt prophylaxis Subjective ROS Limited/Unobtainable: No Constitutional: Reports: no symptoms HEENT: Repors: no symptoms Respiratory: Reports: no symptoms Cardiovascular: Reports: no symptoms Allergies: Coded Allergies: No Known Allergies (Unverified , 01/03/16) Objective Last 24 Hour Vital Signs Date Time Temp Pulse Resp B/P Pulse Ox O2 Delivery O2 Flow Rate FiO2 04/04/17 12:00 98.2 62 19 107/50 94 Room Air 04/04/17 12:00 62 04/04/17 08:35 64 121/58 04/04/17 08:00 55 04/04/17 08:00 96.3 64 19 121/58 96 Room Air 04/04/17 04:00 97.7 60 20 123/52 98 Room Air 04/04/17 04:00 58 04/04/17 00:00 63 04/04/17 00:00 97.7 63 20 122/60 98 Room Air 04/03/17 20:00 98.2 63 20 132/60 98 Room Air 04/03/17 20:00 68 04/03/17 19:42 67 18 Room Air 04/03/17 16:02 98.4 73 20 119/81 98 Room Air 04/03/17 15:25 78 Intake and Output 04/03/17 04/04/17 19:00 07:00 Intake Total 980 ml Output Total 790 ml 750 ml Balance 190 ml -750 ml Intake Oral 980 ml Output Urine Total 300 ml Stool Total 200 ml 150 ml Other 290 ml 600 ml # Bowel Movements 1 General Appearance: WD/WN HEENT: normocephalic, atraumatic Respiratory/Chest: chest wall non-tender, lungs clear Breasts: no masses Cardiovascular: normal peripheral pulses Abdomen: normal bowel sounds, soft, non tender Genitourinary: normal external genitalia Extremities: no cyanosis 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 Microbiology Date/Time Source Procedure Growth Status 04/02/17 22:30 Blood Blood Culture - Preliminary NO GROWTH AFTER 24 HOURS Resulted 04/02/17 22:10 Blood Blood Culture - Preliminary NO GROWTH AFTER 24 HOURS Resulted 04/03/17 12:05 Urine,Clean Catch Urine Culture - Preliminary Gram Negative Bacillus 1 Resulted 04/02/17 22:36 Urine,Clean Catch Urine Culture - Final Escherichia Coli Complete 04/03/17 03:10 Abdomen Gram Stain - Final Resulted 04/03/17 03:10 Wound Culture - Preliminary Gram Negative Mauricio Resulted Laboratory Tests 04/04/17 05:40: White Blood Count 5.9, Red Blood Count 2.88L, Hemoglobin 9.0L, Hematocrit 27.0L , Mean Corpuscular Volume 94, Mean Corpuscular Hemoglobin 31.3H, Mean Corpuscular Hemoglobin Concent 33.3, Red Cell Distribution Width 14.1, Platelet Count 152, Mean Platelet Volume 6.2L, Neutrophils (%) (Auto) 72.8, Lymphocytes ( %) (Auto) 17.2L, Monocytes (%) (Auto) 9.0, Eosinophils (%) (Auto) 0.8, Basophils (%) (Auto) 0.2, Sodium Level 137, Potassium Level 3.9, Chloride Level 106, Carbon Dioxide Level 22, Anion Gap 9, Blood Urea Nitrogen 16, Creatinine 0.6, Estimat Glomerular Filtration Rate , Glucose Level 98, Calcium Level 7.9L, Total Bilirubin 0.5, Aspartate Amino Transf (AST/SGOT) 13, Alanine Aminotransferase (ALT/SGPT) 6, Alkaline Phosphatase 72, Total Protein 5.7L, Albumin 2.3L, Globulin 3.4, Albumin/Globulin Ratio 0.6L Current Medications Medications (Trade) Dose Ordered Sig/Turner Route PRN Reason Start Time Stop Time Status Last Admin Dose Admin Acetaminophen (Tylenol) 650 mg Q4H PRN ORAL Mild Pain/Temp > 100.5 04/04/17 03:30 05/04/17 03:29 Albuterol/ Ipratropium 3 ml 3 ml EVERY 4 HOURS PRN HHN Shortness of Breath 04/03/17 07:30 04/08/17 07:29 Amlodipine Besylate (Norvasc) 5 mg DAILY ORAL 04/03/17 09:00 05/03/17 08:59 04/04/17 08:35 Aspirin (Ecotrin) 81 mg DAILY ORAL 04/03/17 09:00 05/03/17 08:59 04/04/17 08:35 Atorvastatin Calcium (Lipitor) 80 mg DAILY ORAL 04/03/17 09:00 05/03/17 08:59 04/04/17 08:35 Cefepime HCl/ Dextrose (Maxipime/D5W) 55 ml @ 110 mls/hr Q24H IVPB 04/04/17 10:00 04/11/17 09:59 04/04/17 09:23 Gabapentin (Neurontin) 300 mg THREE TIMES A DAY ORAL 04/03/17 09:00 05/03/17 08:59 04/04/17 12:28 Heparin Sodium (Porcine) (Heparin 5000 units/ml) 5,000 units EVERY 12 HOURS SUBQ 04/03/17 09:00 05/03/17 08:59 04/04/17 08:36 Mirtazapine (Remeron) 15 mg QHS ORAL 04/03/17 21:00 05/03/17 20:59 04/03/17 20:41 Morphine Sulfate (Morphine Sulfate) 2 mg EVERY 4 HOURS PRN IVP Moderate Pain (Pain Scale 4-6) 04/03/17 07:30 04/10/17 07:29 Nitroglycerin 0.4 mg 0.4 mg Q5M PRN SL Prn Chest Pain 04/03/17 07:30 05/03/17 07:29 Ondansetron HCl (Zofran) 4 mg Q6H PRN IVP Nausea & Vomiting 04/03/17 07:30 05/03/17 07:29 Polyethylene Glycol (Miralax) 17 gm DAILYPRN PRN ORAL Constipation 04/03/17 07:30 05/03/17 07:29 Temazepam (Restoril) 15 mg HSPRN PRN ORAL Insomnia 04/03/17 07:30 04/10/17 07:29 Vancomycin HCl (Vanco rx to dose) 1 ea DAILY PRN MISC . 04/03/17 09:30 05/03/17 09:29 Vancomycin HCl/ Dextrose (Vancomycin/D5W) 275 ml @ 183.3 mls/ hr Q24H IVPB 04/03/17 11:00 04/08/17 10:59 04/04/17 11:04 BENJY MANRIQUEZ Apr 04, 2017 14:05
[2017-04-04] MEDS ORDERED: Nitroglycerin Subl 0.4mg tab (Bottle Of 25) SL PRN (16:45)
[2017-04-04 17:00] VITALS: BP 119/57
[2017-04-04] MEDS ORDERED: Miralax 17gm pkt ORAL PRN (17:00)
[2017-04-04] MEDS ORDERED: DuoNeb 0.5-3(2.5)mg/3ml neb HHN PRN (17:00)
[2017-04-04] MEDS ORDERED: Morphine Sulfate 2mg/ml Inj IVP PRN (17:00)
[2017-04-04 20:00] VITALS: BP 116/52
--- NOTE | 2017-04-04 20:38 | Infectious Diseases Prog Note ---
Assessment/Plan Problems: (1) Surgical wound, non healing Assessment & Plan: with drainage, suspect infection, continue vancomycin and cefepime empirically, await wound culture (2) UTI (urinary tract infection) Assessment & Plan: on cefepime, await culture (3) Sepsis Assessment & Plan: due to the above, on vancomycin and cefepime, await blood culture (4) Recto-vesical fistula Assessment & Plan: S/P right urostomy at [facility], CT showed stable anatomy Subjective ROS Limited/Unobtainable: Yes Allergies: Coded Allergies: No Known Allergies (Unverified , 01/03/16) Subjective she was up in bed awake and pleasant, no fever or chills, no vomiting Objective Vital Signs Last 24 Hour Vital Signs Date Time Temp Pulse Resp B/P Pulse Ox O2 Delivery O2 Flow Rate FiO2 04/04/17 17:00 98.4 59 20 119/57 96 Room Air 04/04/17 12:00 98.2 62 19 107/50 94 Room Air 04/04/17 12:00 62 04/04/17 08:35 64 121/58 04/04/17 08:00 55 04/04/17 08:00 96.3 64 19 121/58 96 Room Air 04/04/17 07:03 67 18 Room Air 04/04/17 04:00 97.7 60 20 123/52 98 Room Air 04/04/17 04:00 58 04/04/17 00:00 63 04/04/17 00:00 97.7 63 20 122/60 98 Room Air Height (Feet): 5 Height (Inches): 4.00 Weight (Pounds): 122 General Appearance: WD/WN, no acute distress HEENT: normocephalic, atraumatic, anicteric, mucous membranes moist, PERRL Respiratory/Chest: chest wall non-tender, lungs clear, normal breath sounds, no respiratory distress, no accessory muscle use Cardiovascular: normal peripheral pulses, normal rate, regular rhythm, no gallop/murmur, no JVD Abdomen: normal bowel sounds, soft, non tender, no organomegaly, non distended , no mass, other - colostomy bag with intact site, and urostomy bag with intact site , midline surgical wound with opening Skin: no rash, no lesions Microbiology Date/Time Source Procedure Growth Status 04/02/17 22:30 Blood Blood Culture - Preliminary NO GROWTH AFTER 24 HOURS Resulted 04/02/17 22:10 Blood Blood Culture - Preliminary NO GROWTH AFTER 24 HOURS Resulted 04/03/17 12:05 Urine,Clean Catch Urine Culture - Preliminary Gram Negative Bacillus 1 Resulted 04/02/17 22:36 Urine,Clean Catch Urine Culture - Final Escherichia Coli Complete 04/03/17 03:10 Abdomen Gram Stain - Final Resulted 04/03/17 03:10 Wound Culture - Preliminary Gram Negative Mauricio Resulted Laboratory Tests Test 04/04/17 05:40 White Blood Count 5.9 K/UL (4.8-10.8) Red Blood Count 2.88 M/UL (4.20-5.40) L Hemoglobin 9.0 G/DL (12.0-16.0) L Hematocrit 27.0 % (37.0-47.0) L Mean Corpuscular Volume 94 FL (80-99) Mean Corpuscular Hemoglobin 31.3 PG (27.0-31.0) H Mean Corpuscular Hemoglobin Concent 33.3 G/DL (32.0-36.0) Red Cell Distribution Width 14.1 % (11.6-14.8) Platelet Count 152 K/UL (150-450) Mean Platelet Volume 6.2 FL (6.5-10.1) L Neutrophils (%) (Auto) 72.8 % (45.0-75.0) Lymphocytes (%) (Auto) 17.2 % (20.0-45.0) L Monocytes (%) (Auto) 9.0 % (1.0-10.0) Eosinophils (%) (Auto) 0.8 % (0.0-3.0) Basophils (%) (Auto) 0.2 % (0.0-2.0) Sodium Level 137 mEQ/L (135-145) Potassium Level 3.9 mEQ/L (3.4-4.9) Chloride Level 106 mEQ/L (98-107) Carbon Dioxide Level 22 mEQ/L (20-30) Anion Gap 9 (5-15) Blood Urea Nitrogen 16 mg/dL (7-23) Creatinine 0.6 mg/dL (0.5-0.9) Estimat Glomerular Filtration Rate mL/min (>60) Glucose Level 98 mg/dL (74-106) Calcium Level 7.9 mg/dL (8.6-10.2) L Total Bilirubin 0.5 mg/dL (0.0-1.2) Aspartate Amino Transf (AST/SGOT) 13 U/L (5-40) Alanine Aminotransferase (ALT/SGPT) 6 U/L (3-33) Alkaline Phosphatase 72 U/L (35-104) Total Protein 5.7 g/dL (6.6-8.7) L Albumin 2.3 g/dL (3.5-5.2) L Globulin 3.4 g/dL Albumin/Globulin Ratio 0.6 (1.0-2.7) L Current Medications Medications (Trade) Dose Ordered Sig/Turner Route PRN Reason Start Time Stop Time Status Last Admin Dose Admin Acetaminophen (Tylenol) 650 mg Q4H PRN ORAL Mild Pain/Temp > 100.5 04/04/17 17:00 05/04/17 16:59 Albuterol/ Ipratropium (DuoNeb 0.5-3(2.5)mg/3ml) 3 ml Q4H PRN HHN Shortness of Breath 04/04/17 17:00 04/09/17 16:59 Amlodipine Besylate (Norvasc) 5 mg DAILY ORAL 04/05/17 09:00 05/05/17 08:59 Aspirin (Ecotrin) 81 mg DAILY ORAL 04/05/17 09:00 05/05/17 08:59 Atorvastatin Calcium (Lipitor) 80 mg DAILY ORAL 04/05/17 09:00 05/05/17 08:59 Cefepime HCl 1 gm/ Dextrose 55 ml @ 110 mls/hr Q24H IVPB 04/05/17 10:00 04/12/17 09:59 Gabapentin (Neurontin) 300 mg THREE TIMES A DAY ORAL 04/04/17 18:00 05/04/17 17:59 04/04/17 17:10 Heparin Sodium (Porcine) (Heparin 5000 units/ml) 5,000 units EVERY 12 HOURS SUBQ 04/04/17 21:00 05/04/17 20:59 Mirtazapine (Remeron) 15 mg QHS ORAL 04/04/17 21:00 05/04/17 20:59 Morphine Sulfate (Morphine Sulfate) 2 mg Q4H PRN IVP Moderate Pain (Pain Scale 4-6) 04/04/17 17:00 04/11/17 16:59 Nitroglycerin (Ntg) 0.4 mg Q5M PRN SL Prn Chest Pain 04/04/17 16:45 05/04/17 16:44 Ondansetron HCl (Zofran) 4 mg Q6H PRN IVP Nausea & Vomiting 04/04/17 19:30 05/04/17 19:29 Polyethylene Glycol (Miralax) 17 gm DAILYPRN PRN ORAL Constipation 04/04/17 17:00 05/04/17 16:59 Temazepam (Restoril) 15 mg HSPRN PRN ORAL Insomnia 04/04/17 21:00 04/11/17 20:59 Vancomycin HCl (Vanco rx to dose) 1 ea DAILY PRN MISC . 04/04/17 17:00 05/04/17 16:59 Vancomycin HCl/ Dextrose (Vancomycin/D5W) 275 ml @ 183.3 mls/ hr Q24H IVPB 04/05/17 11:00 04/10/17 10:59 Tammie James M.D. Apr 04, 2017 20:38
[2017-04-05] VITALS: BP 121/52
[2017-04-05 04:00] VITALS: BP 142/57
--- NOTE | 2017-04-05 06:44 | Consultation ---
History of Present Illness General Date patient seen: Apr 05, 2017 Time patient seen: 06:41 Chief Complaint: Fever Referring physician: Dr. 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 CT shows expected bilateral hydro. Patient has hx of diverting colostomy, possibly from a surgical complication as well, but unclear. Came for fevers. Resting comfortably. Allergies: Coded Allergies: No Known Allergies (Unverified , 01/03/16) Medication History Scheduled Amlodipine Besylate* (Amlodipine Besylate*), 5 MG ORAL DAILY, (Reported) Aspirin Ec* (Aspirin Ec*), 81 MG ORAL DAILY, (Reported) Atorvastatin (Lipitor), 80 MG ORAL DAILY, (Reported) Cephalexin* (Cephalexin*), 500 MG ORAL THREE TIMES A DAY, (Reported) Gabapentin* (Gabapentin*), 300 MG ORAL THREE TIMES A DAY, (Reported) Lisinopril (Lisinopril*), 5 MG ORAL DAILY, (Reported) Magnesium Hydroxide* (Milk Of Magnesia*), 15 ML ORAL EVERY OTHER DAY, (Reported) Mirtazapine* (Mirtazapine*), 15 MG ORAL DAILY, (Reported) Scheduled PRN Docusate Sodium* (Docusate Sodium*), 100 MG ORAL TWICE A DAY PRN for Constipation, (Reported) Discontinued Medications Docusate Sodium* (Docusate Sodium*), 100 MG ORAL TWICE A DAY, (Reported) Discontinued Reason: Medication dose changed Ferrous Sulfate* (Ferrous Sulfate*), 325 MG ORAL DAILY, (Reported) Discontinued Reason: Pt stopped taking med Ivabradine HCl (Corlanor), 5 MG PO TWICE A DAY, (Reported) Discontinued Reason: Pt stopped taking med Ivabradine HCl (Corlanor), 5 MG PO BID, (Reported) Discontinued Reason: Pt stopped taking med Linagliptin (Tradjenta), 5 MG PO DAILY, (Reported) Discontinued Reason: Pt stopped taking med Lisinopril* (Zestril*), 2.5 MG ORAL DAILY, (Reported) Discontinued Reason: Medication dose changed Metoprolol Tartrate* (Metoprolol Tartrate*), 50 MG ORAL BID, (Reported) Discontinued Reason: Pt stopped taking med Spironolactone* (Aldactone*), 25 MG ORAL DAILY, (Reported) Discontinued Reason: Pt stopped taking med Sulfamethoxazole/Trimethoprim Ds Tablet* (Sulfamethoxazole-Tmp Ds Tablet*), 1 TAB ORAL DAILY, (Reported) Discontinued Reason: Pt stopped taking med Patient History Limited by: language barrier, medical condition History Provided By: Patient, Medical Record Healthcare decision maker Resuscitation status Full Code Advanced Directive on File Past Medical/Surgical History Past Medical/Surgical History: (1) UTI (urinary tract infection) (2) Recto-vesical fistula (3) Pyelonephritis (4) Sepsis Review of Systems Constitutional: Denies: chills, fever, malaise, no symptoms, other, see HPI, sweats, weakness Eye: Denies: acuity changes, blurred vision, discharge, double vision, eye pain , no symptoms, nose congestion, nose pain, other, see HPI, tearing ENT: Denies: ear discharge, ear pain, hearing loss, mouth pain, nasal discharge , no symptoms, nose congestion, nose pain, other, see HPI, throat pain, throat swelling Respiratory: Denies: [place], cough, no symptoms, orthopnea, other, see HPI, shortness of breath, sputum, stridor, wheezing Cardiovascular: Denies: PND, chest pain, edema, no symptoms, other, palpitations, see HPI, syncope Gastrointestinal: Denies: abdominal pain, constipation, diarrhea, hematemesis, melena, nausea, no symptoms, other, see HPI, vomiting Genitourinary: Denies: discharge, dysuria, frequency, hematuria, incontinence, no symptoms, other, pain, retention, see HPI, urgency, vag bleed/dc Musculoskeletal: Denies: back pain, gout, joint pain, joint swelling, muscle pain, muscle stiffness, no symptoms, other, see HPI Skin: Denies: change in color, change in hair/nails, dryness, lesions, no symptoms, other, rash, see HPI Psychiatric: Denies: HI, SI, anxiety, depressed feelings, emotional problems, hallucinations, no symptoms, other, prior hx, see HPI Neurological: Denies: dizziness, focal weakness, headache, no symptoms, numbness, other, paresthesia, see HPI, seizure, syncope, tingling, tremors Endocrine: Denies: excessive sweating, flushing, increased thirst, increased urine, intolerance to temperature, no symptoms, other, see HPI, unexplained weight loss Hematologic/Lymphatic: Denies: anemia, blood clots, diathesis, easy bleeding, easy bruising, no symptoms, other, see HPI, swollen glands Physical Exam General Appearance: no apparent distress Respiratory/Chest: lungs clear Cardiovascular/Chest: normal rate, regular rhythm Abdomen: soft, other - healthy ileal conduit in RLQ, draining urine. Intact colostomy in LLQ draining. Abdominal incision with small area of separation, but otherwise clean Last 24 Hour Vital Signs Date Time Temp Pulse Resp B/P Pulse Ox O2 Delivery O2 Flow Rate FiO2 04/05/17 04:00 96.6 54 20 142/57 Room Air 04/05/17 00:30 97 Room Air 04/05/17 00:00 97.5 56 20 121/52 Room Air 04/04/17 23:52 70 18 Room Air 04/04/17 20:00 97.9 60 20 116/52 95 Room Air 04/04/17 17:00 98.4 59 20 119/57 96 Room Air 04/04/17 12:00 98.2 62 19 107/50 94 Room Air 04/04/17 12:00 62 04/04/17 08:35 64 121/58 04/04/17 08:00 55 04/04/17 08:00 96.3 64 19 121/58 96 Room Air 04/04/17 07:03 67 18 Room Air Intake and Output 04/04/17 04/05/17 19:00 07:00 Intake Total 741.6 ml Output Total 450 ml 875 ml Balance 291.6 ml -875 ml Intake Oral 320 ml IV Total 421.6 ml Output Urine Total 200 ml Stool Total 250 ml 50 ml Other 825 ml # Bowel Movements 1 1 Height (Feet): 5 Height (Inches): 4.00 Weight (Pounds): 122 Medications Current Medications Medications (Trade) Dose Ordered Sig/Turner Route PRN Reason Start Time Stop Time Status Last Admin Dose Admin Acetaminophen (Tylenol) 650 mg Q4H PRN ORAL Mild Pain/Temp > 100.5 04/04/17 17:00 05/04/17 16:59 Albuterol/ Ipratropium (DuoNeb 0.5-3(2.5)mg/3ml) 3 ml Q4H PRN HHN Shortness of Breath 04/04/17 17:00 04/09/17 16:59 Amlodipine Besylate (Norvasc) 5 mg DAILY ORAL 04/05/17 09:00 05/05/17 08:59 Aspirin (Ecotrin) 81 mg DAILY ORAL 04/05/17 09:00 05/05/17 08:59 Atorvastatin Calcium (Lipitor) 80 mg DAILY ORAL 04/05/17 09:00 05/05/17 08:59 Cefepime HCl 1 gm/ Dextrose 55 ml @ 110 mls/hr Q24H IVPB 04/05/17 10:00 04/12/17 09:59 Gabapentin (Neurontin) 300 mg THREE TIMES A DAY ORAL 04/04/17 18:00 05/04/17 17:59 04/04/17 17:10 Heparin Sodium (Porcine) (Heparin 5000 units/ml) 5,000 units EVERY 12 HOURS SUBQ 04/04/17 21:00 05/04/17 20:59 04/04/17 21:08 Mirtazapine (Remeron) 15 mg QHS ORAL 04/04/17 21:00 05/04/17 20:59 04/04/17 21:00 Morphine Sulfate (Morphine Sulfate) 2 mg Q4H PRN IVP Moderate Pain (Pain Scale 4-6) 04/04/17 17:00 04/11/17 16:59 Nitroglycerin (Ntg) 0.4 mg Q5M PRN SL Prn Chest Pain 04/04/17 16:45 05/04/17 16:44 Ondansetron HCl (Zofran) 4 mg Q6H PRN IVP Nausea & Vomiting 04/04/17 19:30 05/04/17 19:29 Polyethylene Glycol (Miralax) 17 gm DAILYPRN PRN ORAL Constipation 04/04/17 17:00 05/04/17 16:59 Temazepam (Restoril) 15 mg HSPRN PRN ORAL Insomnia 04/04/17 21:00 04/11/17 20:59 Vancomycin HCl (Vanco rx to dose) 1 ea DAILY PRN MISC . 04/04/17 17:00 05/04/17 16:59 Vancomycin HCl/ Dextrose (Vancomycin/D5W) 275 ml @ 183.3 mls/ hr Q24H IVPB 04/05/17 11:00 04/10/17 10:59 Assessment/Plan Status: stable Assessment/Plan 86 yo female with post op pyelo vs. UTI. Unfortunately in ileal conduit urinary diversion this is common. Urine will always be colonized with bacteria and bilateral hydronephrosis is expected and will always be there. Treat clinically for pyelonephritis. Wound seems to be ok 1. treat for pyelo 2. recommend f/u at [facility] for further care Sae Cunningham M.D. Apr 05, 2017 06:44
[2017-04-05 08:00] VITALS: BP 133/58
[2017-04-05] MEDS: Heparin 5000 units/ml inj SUBQ SCH (08:45)
[2017-04-05] MEDS ORDERED: Atorvastatin 80mg tab ORAL SCH (09:00)
[2017-04-05] MEDS ORDERED: Aspirin EC 81mg tab ORAL SCH (09:00)
--- NOTE | 2017-04-05 09:14 | Diagnostic Imaging Report ---
Indication: SOB Technique: XRAY CHEST 1 V Comparison:05/13/2016 Findings: The heart remains enlarged. Extensive calcification of the mitral valve is noted. The aorta is dilated and calcified. Slight blunting of the right the angle is noted which is chronic. There is obscuration of the left hemidiaphragm unchanged. No new infiltrates. Impression: Primarily. Extensive calcification of the mitral valve. Atherosclerotic change of the aorta with dilatation unchanged. Chronic blunting of the right costophrenic angle. The possibility of a right pleural effusion cannot be excluded. Opacified left base, also chronic. Most of the left pleural effusion is not excluded.
--- NOTE | 2017-04-05 09:14 | Diagnostic Imaging Report ---
Indication: DYSPNEA Technique: XRAY CHEST 1 V. Comparison: 04/02/2017 Findings: The cardiomediastinal silhouette is unchanged. No new infiltrates are identified. Impression: No significant change from prior examination.
[2017-04-05] MEDS ORDERED: Cefepime HCl 1 GM in D5W 55 ML IVPB SCH (10:00)
[2017-04-05] MEDS ORDERED: Vancomycin 1 GM in D5W 275 ML IVPB SCH (11:00)
[2017-04-05 12:00] VITALS: BP 126/56
--- NOTE | 2017-04-05 13:16 | Consultation ---
DATE OF CONSULTATION: 04/04/2017 PSYCHOTHERAPY CONSULTATION CONSULTING PHYSICIAN: Harriet Winslow M.D. TREATING ATTENDING PHYSICIAN: Delfino Ponce D.O. History Of Present Illness: The patient is an 86-year-old female patient. The patient is 00:35 home. Daughter is also present. The patient has bouts of confusion, agitation, and anxiety. She has been fairly cooperative. The patient has been weak and has had 00:51 who has presented to the emergency room with fever and weakness and confusion. She was diagnosed with UTI, sepsis, and admitted to the hospital. The patient denies suicidal or homicidal thoughts of ideation. Denies auditory or visual hallucinations. The patient 01:10 changes in her environment. Also confused 01:11 The patient was confused today and do not know where she was or why she was brought to the hospital. PAST MEDICAL HISTORY: Includes history of CHF, confusion, and hypertension. ALLERGIES: The patient has no known drug allergies. SUBSTANCE ABUSE HISTORY: The patient denies history of alcohol use, illicit substance abuse, and smoking cigarettes. PAST PSYCHIATRIC HISTORY: The patient has a history of confusion and anxiety. Social History: The patient is an 86-year-old 01:37 female. The patient lives at home and currently ___140__ care at this time. MENTAL STATUS EXAMINATION: The patient is alert and oriented x2 to person and place. Mood is anxious. Affect is congruent. Thought process is disorganized. Thought content is fairly confused. The patient has poor attention and concentration. Poor insight, judgment, and impulse control. Denies suicidal or homicidal thoughts of ideation. DIAGNOSES: [place] I Anxiety disorder. [place] II Deferred. [place] III Per History and Physical. PLAN: This clinician assessed this patient. Provided this patient with supportive psychotherapy and reality orientation. Encouraging the patient to participate in treatment milieu. Continue with medication management and behavioral management. This clinician has reviewed the patient's chart and discussed the treatment with nursing staff. Harriet Winslow PsyD. : IRIS JOB#: [id number] CC:
--- NOTE | 2017-04-05 13:25 | General Progress Note ---
Assessment/Plan Problem List: (1) CHF (congestive heart failure) ICD Codes: I50.9 - Heart failure, unspecified SNOMED: 32656588 (2) HTN (hypertension) ICD Codes: I10 - Essential (primary) hypertension SNOMED: 51764530 (3) UTI (urinary tract infection) ICD Codes: N39.0 - Urinary tract infection, site not specified SNOMED: 42093519 (4) Anemia ICD Codes: D64.9 - Anemia, unspecified SNOMED: 764767821 (5) Sepsis ICD Codes: A41.9 - Sepsis, unspecified organism SNOMED: 53297680 Status: stable, progressing, tolerating diet Assessment/Plan ot pt diet abx dc w hh Subjective Constitutional: Reports: weakness Allergies: Coded Allergies: No Known Allergies (Unverified , 01/03/16) All Systems: reviewed and negative except above Subjective sleepy in bed calm Objective Last 24 Hour Vital Signs Date Time Temp Pulse Resp B/P Pulse Ox O2 Delivery O2 Flow Rate FiO2 04/05/17 12:00 97.5 62 20 126/56 98 Room Air 04/05/17 08:42 Room Air 04/05/17 08:37 69 133/58 04/05/17 08:00 97.3 69 19 133/58 96 Room Air 04/05/17 04:30 59 97 Room Air 04/05/17 04:00 96.6 54 20 142/57 Room Air 04/05/17 00:30 97 Room Air 04/05/17 00:00 97.5 56 20 121/52 Room Air 04/04/17 23:52 70 18 Room Air 04/04/17 20:00 97.9 60 20 116/52 95 Room Air 04/04/17 17:00 98.4 59 20 119/57 96 Room Air Intake and Output 04/04/17 04/05/17 19:00 07:00 Intake Total 741.6 ml Output Total 450 ml 875 ml Balance 291.6 ml -875 ml Intake Oral 320 ml IV Total 421.6 ml Output Urine Total 200 ml Stool Total 250 ml 50 ml Other 825 ml # Bowel Movements 1 1 Height (Feet): 5 Height (Inches): 4.00 Weight (Pounds): 122 General Appearance: alert EENT: normal ENT inspection Neck: normal alignment Cardiovascular: normal peripheral pulses, normal rate, regular rhythm Respiratory/Chest: chest wall non-tender, lungs clear, normal breath sounds Abdomen: normal bowel sounds, non tender, soft Extremities: normal inspection Edema: no edema noted Arm (L), no edema noted Arm (R), no edema noted Leg (L), no edema noted Leg (R), no edema noted Pedal (L), no edema noted Pedal (R), no edema noted Generalized Neurologic: responsive, motor weakness Skin: normal pigmentation, warm/dry MANDI PADILLA Apr 05, 2017 13:25
--- NOTE | 2017-04-05 14:46 | Infectious Diseases Prog Note ---
Assessment/Plan Problems: (1) Surgical wound, non healing Assessment & Plan: with drainage, suspect infection, wound culture grew Citrobacter freundii , on vancomycin and cefepime empirically, will switch to levaquin oral for 7 more days (2) UTI (urinary tract infection) Assessment & Plan: due to E coli, resistant to quinolones, will switch to oral keflex for another 7 days (3) Sepsis Assessment & Plan: less likely with negative blood culture , S/P vancomycin and cefepime . (4) Recto-vesical fistula Assessment & Plan: S/P right urostomy at [facility], CT showed stable anatomy Subjective Constitutional: Reports: no symptoms HEENT: Reports: no symptoms Respiratory: Reports: no symptoms Cardiovascular: Reports: no symptoms Gastrointestinal/Abdominal: Reports: no symptoms Genitourinary: Reports: no symptoms Neurologic: Reports: no symptoms Psychiatric: Reports: no symptoms Skin: Reports: ulcer Endocrine: Reports: no symptoms Hematologic: Reports: no symptoms Allergies: Coded Allergies: No Known Allergies (Unverified , 01/03/16) Subjective she was up in bed awake and pleasant, no fever or chills, no vomiting Objective Vital Signs Last 24 Hour Vital Signs Date Time Temp Pulse Resp B/P Pulse Ox O2 Delivery O2 Flow Rate FiO2 04/05/17 12:00 97.5 62 20 126/56 98 Room Air 04/05/17 08:42 Room Air 04/05/17 08:37 69 133/58 04/05/17 08:00 97.3 69 19 133/58 96 Room Air 04/05/17 04:30 59 97 Room Air 04/05/17 04:00 96.6 54 20 142/57 Room Air 04/05/17 00:30 97 Room Air 04/05/17 00:00 97.5 56 20 121/52 Room Air 04/04/17 23:52 70 18 Room Air 04/04/17 20:00 97.9 60 20 116/52 95 Room Air 04/04/17 17:00 98.4 59 20 119/57 96 Room Air Height (Feet): 5 Height (Inches): 4.00 Weight (Pounds): 122 Microbiology Date/Time Source Procedure Growth Status 04/02/17 22:30 Blood Blood Culture - Preliminary NO GROWTH AFTER 48 HOURS Resulted 04/02/17 22:10 Blood Blood Culture - Preliminary NO GROWTH AFTER 48 HOURS Resulted 04/03/17 18:20 Sputum Gram Stain - Final Resulted 04/03/17 18:20 Sputum Sputum Culture - Preliminary NO GROWTH AFTER 24 HOURS Resulted 04/03/17 03:10 Nasal Nares Left MRSA Culture - Final NO METHICILLIN RESISTANT STAPH AUREUS... Complete 04/03/17 12:05 Urine,Clean Catch Urine Culture - Final Escherichia Coli Complete 04/02/17 22:36 Urine,Clean Catch Urine Culture - Final Escherichia Coli Complete 04/03/17 18:20 Abdomen Gram Stain - Final Resulted 04/03/17 18:20 Wound Culture - Preliminary Gram Negative Bacillus 1 Resulted 04/03/17 03:10 Abdomen Gram Stain - Final Resulted 04/03/17 03:10 Wound Culture - Preliminary Citrobacter Freundii Resulted 04/03/17 03:10 Rectum VRE Culture - Final Enterococcus Faecalis - Vre Complete Current Medications Medications (Trade) Dose Ordered Sig/Turner Route PRN Reason Start Time Stop Time Status Last Admin Dose Admin Acetaminophen (Tylenol) 650 mg Q4H PRN ORAL Mild Pain/Temp > 100.5 04/04/17 17:00 05/04/17 16:59 Albuterol/ Ipratropium (DuoNeb 0.5-3(2.5)mg/3ml) 3 ml Q4H PRN HHN Shortness of Breath 04/04/17 17:00 04/09/17 16:59 Amlodipine Besylate (Norvasc) 5 mg DAILY ORAL 04/05/17 09:00 05/05/17 08:59 04/05/17 08:37 Aspirin (Ecotrin) 81 mg DAILY ORAL 04/05/17 09:00 05/05/17 08:59 04/05/17 08:36 Atorvastatin Calcium (Lipitor) 80 mg DAILY ORAL 04/05/17 09:00 05/05/17 08:59 04/05/17 08:36 Cefepime HCl 1 gm/ Dextrose 55 ml @ 110 mls/hr Q24H IVPB 04/05/17 10:00 04/12/17 09:59 04/05/17 09:54 Gabapentin (Neurontin) 300 mg THREE TIMES A DAY ORAL 04/04/17 18:00 05/04/17 17:59 04/05/17 08:37 Heparin Sodium (Porcine) (Heparin 5000 units/ml) 5,000 units EVERY 12 HOURS SUBQ 04/04/17 21:00 05/04/17 20:59 04/05/17 08:45 Mirtazapine (Remeron) 15 mg QHS ORAL 04/04/17 21:00 05/04/17 20:59 04/04/17 21:00 Morphine Sulfate (Morphine Sulfate) 2 mg Q4H PRN IVP Moderate Pain (Pain Scale 4-6) 04/04/17 17:00 04/11/17 16:59 Nitroglycerin (Ntg) 0.4 mg Q5M PRN SL Prn Chest Pain 04/04/17 16:45 05/04/17 16:44 Ondansetron HCl (Zofran) 4 mg Q6H PRN IVP Nausea & Vomiting 04/04/17 19:30 05/04/17 19:29 Polyethylene Glycol (Miralax) 17 gm DAILYPRN PRN ORAL Constipation 04/04/17 17:00 05/04/17 16:59 Temazepam (Restoril) 15 mg HSPRN PRN ORAL Insomnia 04/04/17 21:00 04/11/17 20:59 Vancomycin HCl (Vanco rx to dose) 1 ea DAILY PRN MISC . 04/04/17 17:00 05/04/17 16:59 Vancomycin HCl/ Dextrose (Vancomycin/D5W) 275 ml @ 183.3 mls/ hr Q24H IVPB 04/05/17 11:00 04/10/17 10:59 04/05/17 11:05 Tammie James M.D. Apr 05, 2017 14:46
[2017-04-05] MEDS ORDERED: LEVAQUIN500 MG ORAL (15:06)
[2017-04-05] MEDS ORDERED: CEPHALEXIN500 MG ORAL (15:07)
--- NOTE | 2017-04-05 15:33 | Wound Care Consultation ---
Wound Assessment Wound Assessment #1: Wound Number: #1 Wound Present on Admission: Yes New Wound: No Status Change of Wound: No Wound Location Body Site Modif: mid Wound Location Body Site: sacral Wound Type: pressure ulcer Michael Test: Does not Michael Pressure Ulcer Stage: deep tissue injury - noted maroon in color with denuded skin to surrounding wound . UNSTAGEABLE PRESSURE ULCER. Wound Thickness: Full Thickness Wound Length: 1.0 Wound Width: 0.5 Wound Depth: UTD Percent of Wound Purple/Maroon: 100 Wound Drainage Amount: None Wound Drainage Odor: None/Absent Tissue Surrounding Wound: Denuded - Noted slight denuded skin to site. Wound General Appearance: Reddened - maroon Wound Assessment #2: Wound Number: #2 Wound Present on Admission: Yes New Wound: No Status Change of Wound: No Wound Location Body Site Modif: right Wound Location Body Site: arm - forearm Wound Type: other - open wound -etiology unknown, full thickness. Michael Test: Does not Michael Wound Thickness: Full Thickness Wound Length: 4.0 Wound Width: 2.0 Wound Depth: 0.2 Percent of Wound [place]/Red: 100 Wound Drainage Description: Serosanguineous Wound Drainage Amount: Moderate Wound Drainage Odor: None/Absent Tissue Surrounding Wound: Macerated Wound General Appearance: Reddened Wound Assessment #3: Wound Number: #3 Wound Present on Admission: Yes New Wound: No Status Change of Wound: No Wound Location Body Site Modif: mid Wound Location Body Site: abdomen Wound Type: other - abdominal wound along surgical scar possible dehiscence. Michael Test: Does not Michael Wound Thickness: Full Thickness Wound Length: 1.0 Wound Width: 0.6 Wound Depth: 0.5 Percent of Wound [place]/Red: 100 Wound Drainage Description: Serosanguineous Wound Drainage Amount: Moderate Wound Drainage Odor: None/Absent Tissue Surrounding Wound: Intact Wound General Appearance: Reddened, Draining Wound Comment #1 Mid sacral pressure ulcer unstageable pressure ulcer. #2 Right forearm open wound -etiology unknown. full thickness wound. #3 mid adominal wound . Recommendation. -follow up with MD regarding mid abdominal wound along surgical scar. - Local wound care as ordered. -Apply low air loss SPR mattress. - Turn and reposition. -Keep clean and dry. -Optimize nutrition. -Avoid shear and friction. - Offload affected sites. -Assess and notify MD for any further changes of condition to skin noted. ZOË SOLORZANO Apr 05, 2017 15:33
[2017-04-05 16:00] VITALS: BP 126/52
[2017-04-05] MEDS ORDERED: Levofloxacin 500mg tab ORAL ONE (16:00)
[2017-04-05] MEDS ORDERED: Tubing IV Secondary IV ONE ×2 (16:29→18:44)
--- NOTE | 2017-04-05 16:46 | Cardiac Electrophysiology PN ---
Subjective Subjective [id number] Objective Last 24 Hour Vital Signs Date Time Temp Pulse Resp B/P Pulse Ox O2 Delivery O2 Flow Rate FiO2 04/05/17 16:00 97.9 62 19 126/52 97 Room Air 04/05/17 12:00 97.5 62 20 126/56 98 Room Air 04/05/17 08:42 Room Air 04/05/17 08:37 69 133/58 04/05/17 08:00 97.3 69 19 133/58 96 Room Air 04/05/17 04:30 59 97 Room Air 04/05/17 04:00 96.6 54 20 142/57 Room Air 04/05/17 00:30 97 Room Air 04/05/17 00:00 97.5 56 20 121/52 Room Air 04/04/17 23:52 70 18 Room Air 04/04/17 20:00 97.9 60 20 116/52 95 Room Air 04/04/17 17:00 98.4 59 20 119/57 96 Room Air Intake and Output 04/04/17 04/05/17 19:00 07:00 Intake Total 741.6 ml Output Total 450 ml 875 ml Balance 291.6 ml -875 ml Intake Oral 320 ml IV Total 421.6 ml Output Urine Total 200 ml Stool Total 250 ml 50 ml Other 825 ml # Bowel Movements 1 1 Microbiology Date/Time Source Procedure Growth Status 04/02/17 22:30 Blood Blood Culture - Preliminary NO GROWTH AFTER 48 HOURS Resulted 04/02/17 22:10 Blood Blood Culture - Preliminary NO GROWTH AFTER 48 HOURS Resulted 04/03/17 18:20 Sputum Gram Stain - Final Resulted 04/03/17 18:20 Sputum Sputum Culture - Preliminary NO GROWTH AFTER 24 HOURS Resulted 04/03/17 03:10 Nasal Nares Left MRSA Culture - Final NO METHICILLIN RESISTANT STAPH AUREUS... Complete 04/03/17 12:05 Urine,Clean Catch Urine Culture - Final Escherichia Coli Complete 04/02/17 22:36 Urine,Clean Catch Urine Culture - Final Escherichia Coli Complete 04/03/17 18:20 Abdomen Gram Stain - Final Resulted 04/03/17 18:20 Wound Culture - Preliminary Gram Negative Bacillus 1 Resulted 04/03/17 03:10 Abdomen Gram Stain - Final Resulted 04/03/17 03:10 Wound Culture - Preliminary Citrobacter Freundii Resulted 04/03/17 03:10 Rectum VRE Culture - Final Enterococcus Faecalis - Vre Complete MATIAS BRITTON Apr 05, 2017 16:46
[2017-04-05] MEDS ORDERED: Cephalexin 250mg Cap ORAL SCH (18:00)
[2017-04-05] MEDS ORDERED: NS 275ml ONE (18:44)
--- NOTE | 2017-04-05 19:56 | Pulmonology Progress Note ---
Assessment/Plan Problems: (1) Sepsis (2) Pyelonephritis (3) Colostomy care (4) Recto-vesical fistula Assessment/Plan improvnig continue abx check cultures symptomatic treatment titrate fio2 dc home Subjective ROS Limited/Unobtainable: No Constitutional: Reports: no symptoms HEENT: Repors: no symptoms Respiratory: Reports: no symptoms Allergies: Coded Allergies: No Known Allergies (Unverified , 01/03/16) Objective Last 24 Hour Vital Signs Date Time Temp Pulse Resp B/P Pulse Ox O2 Delivery O2 Flow Rate FiO2 04/05/17 16:00 97.9 62 19 126/52 97 Room Air 04/05/17 12:00 97.5 62 20 126/56 98 Room Air 04/05/17 08:42 Room Air 04/05/17 08:37 69 133/58 04/05/17 08:00 97.3 69 19 133/58 96 Room Air 04/05/17 04:30 59 97 Room Air 04/05/17 04:00 96.6 54 20 142/57 Room Air 04/05/17 00:30 97 Room Air 04/05/17 00:00 97.5 56 20 121/52 Room Air 04/04/17 23:52 70 18 Room Air 04/04/17 20:00 97.9 60 20 116/52 95 Room Air Intake and Output 04/04/17 04/05/17 19:00 07:00 Intake Total 741.6 ml Output Total 450 ml 875 ml Balance 291.6 ml -875 ml Intake Oral 320 ml IV Total 421.6 ml Output Urine Total 200 ml Stool Total 250 ml 50 ml Other 825 ml # Bowel Movements 1 1 General Appearance: WD/WN HEENT: normocephalic, atraumatic Respiratory/Chest: chest wall non-tender, lungs clear Cardiovascular: normal peripheral pulses, normal rate Abdomen: normal bowel sounds, soft, non tender, no mass Genitourinary: normal external genitalia Extremities: no cyanosis Microbiology Date/Time Source Procedure Growth Status 04/02/17 22:30 Blood Blood Culture - Preliminary NO GROWTH AFTER 48 HOURS Resulted 04/02/17 22:10 Blood Blood Culture - Preliminary NO GROWTH AFTER 48 HOURS Resulted 04/03/17 18:20 Sputum Gram Stain - Final Resulted 04/03/17 18:20 Sputum Sputum Culture - Preliminary NO GROWTH AFTER 24 HOURS Resulted 04/03/17 03:10 Nasal Nares Left MRSA Culture - Final NO METHICILLIN RESISTANT STAPH AUREUS... Complete 04/03/17 12:05 Urine,Clean Catch Urine Culture - Final Escherichia Coli Complete 04/02/17 22:36 Urine,Clean Catch Urine Culture - Final Escherichia Coli Complete 04/03/17 18:20 Abdomen Gram Stain - Final Resulted 04/03/17 18:20 Wound Culture - Preliminary Gram Negative Bacillus 1 Resulted 04/03/17 03:10 Abdomen Gram Stain - Final Resulted 04/03/17 03:10 Wound Culture - Preliminary Citrobacter Freundii Resulted 04/03/17 03:10 Rectum VRE Culture - Final Enterococcus Faecalis - Vre Complete BENJY MANRIQUEZ Apr 05, 2017 19:56
--- NOTE | 2017-04-05 21:01 | Consultation ---
DATE OF CONSULTATION: 04/05/2017 CARDIOLOGY CONSULTATION CONSULTING PHYSICIAN: Richard De La Fuente M.D. REFERRING PHYSICIAN: Dlefino Ponce D.O. REASON FOR CONSULTATION: Management of hypertension. HISTORY OF PRESENT ILLNESS: The patient is an 86-year-old lady with history of hypertension and hyperlipidemia as well as history of recent diverting ileal conduit for severe rectovesical fistula. The patient's CT scan shows expected bilateral hydronephrosis. The patient has history of diverting colostomy from the surgical complications. The patient was admitted for higher care and was started on IV antibiotics. Cardiology consultation was requested for further evaluation and management. REVIEW OF SYSTEM: Negative other than what was mentioned in the history of present illness. PAST MEDICAL HISTORY: Includes, 1. Hypertension. 2. History of nonsustained ventricular tachycardia. 3. History of colovesicular fistula status post colostomy. 4. Status post small bowel obstruction and resection. FAMILY HISTORY: Noncontributory. PHYSICAL EXAMINATION: VITAL SIGNS: Blood pressure is 126/52, pulse 62, respiration 19, and temperature 97.9 degrees. HEAD AND NECK: Shows no JVD. LUNGS: Clear. CARDIOVASCULAR: Shows regular S1 and S2 with no gallop or murmur. ABDOMEN: Status post colostomy on the left and ileostomy on the right side of the abdomen and a small midabdominal incision present. EXTREMITIES: A 1+ pitting edema. LABORATORY DATA: Labs show white count of 5.9, hemoglobin of 9, hematocrit 27, and platelet count of 152,000. Sodium was 137, potassium 3.9, BUN of 6, creatinine 0.6, and glucose of 98. Troponin is negative x2. ASSESSMENT AND PLAN: 1. Hypertension, continue Norvasc 5 mg daily. 2. History of diastolic dysfunction, . 3. Hyperlipidemia. 4. Nonhealing surgical wound drainage, on vancomycin and cefepime by Dr. James. 5. Urinary tract infection. 6. Sepsis. 7. Rectovesical fistula, status post right urostomy and left colostomy. Thank you very much for allowing me to participate in the care of this patient. Please do not hesitate to contact me for any questions regarding my evaluation. Richard De La Fuente M.D. DR: FRANCES JOB#: [id number] CC:
--- NOTE | 2017-04-06 10:51 | Discharge Summary ---
Discharge Summary Hospital Course Date of Admission Apr 02, 2017 at 22:48 Date of Discharge Apr 05, 2017 at 18:45 Admitting Diagnosis sepsis, urinary infection HPI Bret Campa is a 86 year old female who was admitted on Apr 02, 2017 at 22:48 for Sepsis,Urinary Infection Hospital Course dc summary #[id number] Discharge Medications Continued Medications: Amlodipine Besylate* (Amlodipine Besylate*) 5 Mg Tablet 5 MG ORAL DAILY, TAB Aspirin Ec* (Aspirin Ec*) 81 Mg Tablet.dr 81 MG ORAL DAILY, TAB Atorvastatin (Lipitor) 80 Mg Tablet 80 MG ORAL DAILY, TAB 0 Refills Cephalexin* (Keflex*) 500 Mg Capsule 250 MG ORAL Q8HR for 7 Days, #21 CAP Docusate Sodium* (Docusate Sodium*) 100 Mg Capsule 100 MG ORAL TWICE A DAY PRN for Constipation, CAP Gabapentin* (Gabapentin*) 300 Mg Capsule 300 MG ORAL THREE TIMES A DAY, CAP 0 Refills Levofloxacin* (Levaquin*) 500 Mg Tablet 500 MG ORAL DAILY for 7 Days, #7 TAB Lisinopril (Lisinopril*) 5 Mg Tablet 5 MG ORAL DAILY, TAB Magnesium Hydroxide* (Milk Of Magnesia*) 400 Mg/5 Ml Oral.susp 15 ML ORAL EVERY OTHER DAY, ML Mirtazapine* (Mirtazapine*) 15 Mg Tablet 15 MG ORAL DAILY, TAB Discontinued Medications: Cephalexin* (Cephalexin*) 500 Mg Tablet 500 MG ORAL THREE TIMES A DAY, CAP Discharge Condition Upon Discharge: stable Discharge Disposition Patient was discharged to Home with Home Health(06) Discharge Diagnoses: Discharge Instructions Discharge Instructions Special Instructions I have been assigned to complete a D/C Summary on this account. I was not involved in the patient management Tangela Cohen NP (Vanchtein) Apr 06, 2017 10:51
--- NOTE | 2017-04-06 19:31 | Discharge Summary 2 SIG ---
DATE OF ADMISSION: 04/02/2017 DATE OF DISCHARGE: 04/05/2017 CONSULTANTS: 1. Richard De La Fuente M.D., manager nc. 2. Dr. Cunningham, Urology. 3. Dr. James, ID specialist. 4. Fartun Hawthorne M.D., bagging machine operator. BRIEF HOSPITAL COURSE: 86-year-old female with history of hypertension, congestive heart failure, recent history of rectovesical fistula, status post right urostomy and left colostomy, presented to the emergency department with fever. According to family members, fever at home -102. Workup in the emergency room revealed low-grade fever of 99.5. Blood pressure and heart rate were stable. Mild leukocytosis -11.7. Urinalysis with evidence of UTI. Chest x-ray revealed no acute cardiopulmonary pathology. No infiltrates. No evidence of CHF. The patient was admitted for further management. ID consult was requested. The patient was started on empiric antibiotics. Urine culture grew E coli. Blood culture were negative. Sputum culture with yeast and wound culture with Citrobacter. ID recommended to change antibiotic prior to discharge to oral Levaquin for additional seven days. Leukocytosis resolved. Afebrile. Urologist seen and evaluated the patient due to the recent history of rectovesical fistula and findings of bilateral hydronephrosis on CT of the abdomen and pelvis. According to urologist in urinary diversion, it is common to have pyelonephritis versus UTI. Urine colonized with bacteria and bilateral hydronephrosis were expected findings. He recommended to treat clinically for pyelonephritis. Wound appeared to be clean according to urologist. He also recommended for patient to follow up at [facility], where the surgery was done, for further management. Supplemental oxygen and pulmonary toilet were provided as needed. Symptomatic treatment rendered. No clinical evidence of CHF exacerbation. Damage Inside Adjuster followed. No evidence of CHF, patient with prior history of diastolic dysfunction. Blood pressure was managed with calcium-channel ilene, was stable. The patient had a sacral pressure ulcer un-stageable. Wound care nurse seen and evaluated decubitus ulcer. Wound care was provided as per wound care nurse recommendation. The patient was working with physical and occupational therapists. All consultants cleared the patient for discharge. DISCHARGE DIAGNOSES: 1. Sepsis. 2. Urinary tract infection with Escherichia coli. 3. Rectovesical fistula, status post right urostomy and left colostomy. 4. Hypertension. 5. History of diastolic dysfunction. 6. Midsacral pressure ulcer, un-stageable, present on admission. DISCHARGE MEDICATIONS: See medication reconciliation list. DISCHARGE INSTRUCTIONS: The patient was discharged home with home health services. Follow up with primary medical doctor. Delfino Ponce D.O. I have been assigned to dictate discharge summary on this account and I was not involved in the patient's management. Tangela WinstonPhelps Memorial HospitalShari N.PVioleta DR: MURPHY JOB#: [id number] CC: OLE
--- NOTE | 2017-04-08 01:02 | Cardiology Report ---
APPROVED REPORT EKG Measurement Heart [id number] [place] [id number] Normal sinus rhythm Nonspecific ST abnormality Abnormal ECG
--- NOTE | 2017-04-08 01:02 | Cardiology Report ---
APPROVED REPORT EKG Measurement Heart [id number] [place] [id number] [id number] Normal sinus rhythm Normal ECG
== END 2017-04-05 18:45 | disposition home health service (06) | DRG 872 ==
LOC: EDBD 22:13 → EMR 22:39 → 2E 22:48 → EDBEDREQ 23:09 → 2E 04-03 02:42 → 4W 04-04 16:19
DX: A41.9 Sepsis, unspecified organism (principal); L89.150 Pressure ulcer of sacral region, unstageable; I50.9 Heart failure, unspecified; N13.30 Unspecified hydronephrosis; N39.0 Urinary tract infection, site not specified; F03.90 Unspecified dementia, unspecified severity, without behavioral disturbance, psychotic disturbance, mood disturbance, and anxiety; N32.1 Vesicointestinal fistula; T81.4XXA Infection following a procedure, initial encounter; B96.89 Other specified bacterial agents as the cause of diseases classified elsewhere; Y83.3 Surgical operation with formation of external stoma as the cause of abnormal reaction of the patient, or of later complication, without mention of misadventure at the time of the procedure; I10 Essential (primary) hypertension; D64.9 Anemia, unspecified; B96.20 Unspecified Escherichia coli [E. coli] as the cause of diseases classified elsewhere; Z43.3 Encounter for attention to colostomy; F41.9 Anxiety disorder, unspecified; Z90.49 Acquired absence of other specified parts of digestive tract; E78.5 Hyperlipidemia, unspecified; Z43.6 Encounter for attention to other artificial openings of urinary tract
CPT/HCPCS: 36415; 71010; 74176; 80053; 81001; 81003; 82550; 82553; 83605; 83880; 84484; 85025; 87040; 87070; 87081; 87086; 87181; 87205; 93005; 94664; 97803